=== PATIENT | male | born 1940 | race Caucasian/White ===

== ENCOUNTER → 2016-07-26 | Outpatient (CLI) | payer OTHER, BC ==
[~2016-07-26] VITALS: Ht 175.3 cm; Wt 115.2 kg
[~2016-07-26] MED LIST: ADVAIR 250/501 DISK IH; ALBUTEROL SULF8.5 GM IH; ALPRAZOLAM0.25 M2 PO; ALPRAZOLAM0.5 MG PO; ASPIR-TRIN325 M1 PO; CARDIZEM CD,CA240 MG PO; CARDIZEM120 MG PO; CARDIZEM60 MG PO; CELEXA40 MG PO; DIGITEK125 MC2 PO; DIGOX250 MCG PO; ELIQUIS5 MG PO; FORTAMET1000 M1 PO; FUROSEMIDE20 MG PO; INDOCIN50 MG PO; LEVOTHYROXINE100 MCG PO; LO-DOSE ASPIRIN81 M1 PO; LOPRESSOR100 M1 PO; OMEPRAZOLE40 M1 PO; PRAVACHOL40 MG PO; PRAVASTATIN SOD40 MG PO; PREDNISOLONE SOD5 ML RIGHT EYE; PREDNISONE5 MG PO; PROLENSA1.6 ML RIGHT EYE; RANITIDINE HCL300 M1 PO; SIMVASTATIN20 MG PO; TRAMADOL HCL50 MG PO; TYLENOL EXTRA500 MG PO; VALTREX1000 MG PO; VITAMIN D32000 UNIT PO; ZYRTEC10 M2 PO; ZYRTEC10 M3 PO
== END | disposition home or self-care (01) ==
LOC: AMB 12:02
DX: C25.8 Malignant neoplasm of overlapping sites of pancreas (principal); K31.7 Polyp of stomach and duodenum; K21.9 Gastro-esophageal reflux disease without esophagitis; E78.5 Hyperlipidemia, unspecified; Z72.0 Tobacco use; Z79.82 Long term (current) use of aspirin; Z91.09 Other allergy status, other than to drugs and biological substances
CPT/HCPCS: 88173; 88305; 88342 TC; C1726; J0330; J0744; J2405